=== PATIENT | female | born 1955 | race Caucasian/White ===

== ENCOUNTER 2018-08-15 01:36 | Outpatient (CLI) | payer BC, SELFPAY ==
[2018-08-15 09:05] LABS: Hemoglobin A1C 5.3 % (4.5-6.2)
[2018-08-15 10:25] LABS: ALT 34 U/L (12-78); AST 22 U/L (15-37); Albumin 3.7 g/dL (3.4-5.0); Alkaline Phosphatase 105 U/L (46-116); Anion Gap 9.9 mmol/L (3-11); BUN 15 mg/dL (7-18); Bilirubin, Total 0.5 mg/dL (0.2-1.0); CO2 26.1 mmol/L (21.0-32.0); Calcium 9.2 mg/dL (8.5-10.1); Chloride 107 mmol/L (98-107); Cholesterol 245 mg/dL (50-200); Glucose 92 mg/dL (70-100); HDL Cholesterol 80 mg/dL (40-60); LDL CHOLESTEROL 143 mg/dL (<100); Potassium 4.2 mmol/L (3.5-5.1); Sodium 143 mmol/L (136-145); Total Protein 6.6 g/dL (6.4-8.2); Triglyceride 77 mg/dL (30-150)
[2018-08-16 11:17] LABS: HIV-1/2 Ag & Ab Screen Negative (NEGAT)
[2018-08-16 12:02] LABS: Hepatitis C Ab w Rflx HCV PCR Negative (NEGAT)
== END 2018-08-15 01:56 ==
PROVIDERS: PCP Nurse Practitioner Family; Visit Provider Nurse Practitioner Family
DX: I10 Essential (primary) hypertension (principal); R73.01 Impaired fasting glucose; E78.5 Hyperlipidemia, unspecified; Z11.59 Encounter for screening for other viral diseases; Z11.4 Encounter for screening for human immunodeficiency virus [HIV]
CPT/HCPCS: 36415; 80053; 80061; 83721; 86803; 87389; 83036

== ENCOUNTER 2019-01-13 11:39 | Emergency (ER) | payer BC, SELFPAY ==
[2019-01-13] VITALS (7 sets, daily range): BP systolic 145–178; BP diastolic 64–66; PULSE 92–119; RESP 12–29; TEMP 36.7–36.8; O2SAT 98–99
[2019-01-13 12:06] LABS: Abs Immature Grans 0.03 k/cumm (0.0-0.09); Absolute Basophil Count 0.03 k/cumm (0.0-0.2); Absolute Eosinophil Count 0.07 k/cumm (0.0-0.7); Absolute Lymphocyte Count 1.82 k/cumm (1.2-3.4); Absolute Monocyte Count 0.65 k/cumm (0.11-0.7); Absolute Neutrophil Count 4.21 k/cumm (1.2-6.7); Basophils % 0.4; HCT 43.8 % (36.0-46.0); HGB 13.6 g/dL (12.0-15.5); Immature Grans % 0.4; Lymphocytes % 26.7; Mean Corp. HGB Concentration 31.1 g/dL (32.0-36.0); Mean Corpuscular Hemoglobin 28.8 pg (27.0-33.0); Mean Corpuscular Volume 92.6 fL (80-95); Mean Platelet Volume 10.9 fL (8.0-11.0); Monocytes % 9.5; Platelet Count 229 x1000/uL (130-400); RBC 4.73 m/cumm (4.00-5.20); RBC Distribution Width 16.6 % (11.7-14.6); White Blood Cell Count 6.81 k/cumm (4.4-10.8)
[2019-01-13 12:27] LABS: Lipase 133 U/L (73-393)
[2019-01-13 12:36] LABS: ALT 29 U/L (12-78); AST 19 U/L (15-37); Alkaline Phosphatase 113 U/L (46-116); Anion Gap 14.8 mmol/L (3-11); BUN 17 mg/dL (7-18); Bilirubin, Total 0.4 mg/dL (0.2-1.0); CO2 23.2 mmol/L (21.0-32.0); CREATININE 1.09 mg/dL (0.55-1.02); Calcium 9.4 mg/dL (8.5-10.1); Chloride 103 mmol/L (98-107); Estimated GFR 50.54 (mL/min/1.73m2); Glucose 116 mg/dL (70-100); Potassium 3.6 mmol/L (3.5-5.1); Sodium 141 mmol/L (136-145); Total Protein 7.7 g/dL (6.4-8.2)
[2019-01-13 12:47] LABS: ETHANOL BLOOD < 3.0 mg/dL (<3); Troponin I < 0.05 ng/mL (0.00-0.06)
[2019-01-13] MEDS: Normal Saline 1,000 ML 1000 ML IV ×2 (13:11→14:22)
[2019-01-13 13:31] LABS: Bilirubin Negative (Negative); Blood Negative (Negative); Clarity Clear (Clear); Glucose Negative (Negative); Ketones Negative (Negative); Leukocyte Esterase Negative (Negative); Nitrite Negative (Negative); Urobilinogen 0.2 EU/dL (Up TO 0.2); pH 5.5 (5-8)
--- NOTE | 2019-01-13 14:05 | ED.GENADUL_ITS ---
Discharge Plan Disposition Patient Disposition: HOME Condition: Improving Discharge Details Chief Complaint: GenMedical Clinical Impression: Nausea, Other malaise Primary Care Provider: Nisreen Murphy ED Provider: Gabe Matos Home Meds and New Rx's Prescriptions: Continued Centrum Silver Women 8 mg iron-400 mcg-300 mcg tablet 0.5 tab PO DAILY RF: 0 cholecalciferol (vitamin D3) 1,000 unit capsule 1,000 unit PO DAILY RF: 0 fluticasone propionate [Flonase Allergy Relief] 50 mcg/actuation spray,suspension 1 spray NS DAILY PRN (Reason: nasal congestion) Qty: 3 RF: 3 triamcinolone acetonide 15 GM cream 15 gm Topical DIRECTED PRNRF: 0 clotrimazole 1 % cream 1 applic TP BID RF: 0 Discharge Instructions Instructions: Vertigo (ED) Additional Instructions: Continue to take your medication as prescribed and return to the emergency department immediately for any new or significant worsening of symptoms. Please stay well-hydrated as some of your labs were suggestive of dehydration and keep your follow-up appointments as scheduled. Referrals: Nisreen Murphy, [facility] [Primary Care Provider] - (As needed for further reassessment) Discharge Data Discharge Date/Time-TO BE ENTERED AT DEPARTURE: 01/13/19 16:12 Medical Decision Making Patient presenting the emergency department for chief complaint of nausea and episode of malaise. Patient states that she was reading her iPad when she started to feel off she then stood up and walked over to check her blood pressure and noted it was high and began having some nausea. Patient does state that cardiac problems run in her family. Patient denies any chest pain, shortness of breath, or difficulty breathing. Patient does state some sinus congestion and pressure along with some left ear otalgia. Physical exam is unremarkable and shows negative hints exam, normal cranial nerve exam, patient amatory moving all extremities with no deficiencies noted extremities, normal cardiac exam except for tachycardia, normal respiratory exam. Plan to check EKG, labs, and give IV fluids. EKG reviewed with attending physician and shows sinus tachycardia, rate of 115, no acute signs of STEMI Review of labs shows a unremarkable CBC, CMP with elevated anion gap and decreased renal function compared to patient's baseline but nothing emergent, otherwise nondiagnostic, unremarkable UA, and negative troponin. Given elevated anion gap along with decreased renal function plan to give patient second liter of IV fluids. After second liter of IV fluids patient states that she is feeling better but given the patient has been here already for 3 hours I do feel is appropriate for repeat troponin to rule out any acute coronary symptoms but patient continues remain chest pain-free and no dyspnea. Review of second troponin is also negative. Patient now not tachycardic and states even further improvement of symptoms. Given patient's sinus tenderness along with otalgia and episode of feeling off along with some nausea question of possible vertigo. Mira-Hallpike is negative. Patient does state history of vertigo in the past due to chronic ear and sinus issues that she sees Dr. Seals for. Patient does state that she is seeing Dr. Seals next week which I feel is appropriate. Otherwise given non-worrisome physical exam and laboratory findings and patient having improvement I do feel the patient is able to be safely discharged. Close return precautions were discussed. After discussion of diagnosis and plan of care patient has no further needs, questions, or con cerns and states clear understanding to return to the emergency department for any worsening symptoms. HPI General Mode of arrival: ambulatory . Date/Time Provider Initiated Documentation: 01/13/19 11:48 . Limitations to Documentation: no limitations . Information obtained by: patient and RN notes reviewed . History of Present Illness described as mild, with intensity rated at 4. Quality is described as aching, and is localized to the face. Patient started experiencing this hour(s) (2) and it has been constant. No relieving factors improve symptom(s), No exacerbating factors reported . Patient notes no other symptoms.. Patient did receive the following treatments prior to arrival, none Related Data Home Medications Medication Instructions Recorded Confirmed triamcinolone acetonide 15 gm TOPICAL DIRECTED PRN 11/23/15 01/13/19 script clotrimazole 1 % topical cream 1 applic TP BID 04/30/18 01/13/19 cholecalciferol (vitamin D3) 1,000 1,000 unit PO DAILY 07/18/18 01/13/19 unit capsule fluticasone propionate 50 1 spray NS DAILY PRN #3 unit 07/18/18 01/13/19 mcg/actuation nasal spray,suspension multivit with 0.5 tab PO DAILY tab 07/18/18 01/13/19 [id number] 8 mg iron-400 mcg-300 mcg tablet Previous Rx's Medication Instructions Recorded fluticasone propionate 50 1 spray NS DAILY PRN #3 unit 07/18/18 mcg/actuation nasal spray,suspension Allergies Allergy/AdvReac Type Severity Reaction Status Date / Time Cherries Allergy Unknown Throat Uncoded 01/13/19 11:46 Problems Walnuts Allergy Unknown Throat Uncoded 01/13/19 11:46 Problems General Stated Complaint: GenMedical QIAN: 3 Review of Systems Constitutional Denies chills, Denies fever(s) and Denies headache(s) ENT Denies vertigo, Denies dizziness and Denies headache(s) Cardiovascular Denies chest pain, Denies syncope and Denies dyspnea Respiratory Denies cough and Denies dyspnea Gastrointestinal Reports as per HPI, Denies abdominal pain, Denies melena, Denies change in bowel habits, Denies constipation, Denies diarrhea, Reports nausea and Denies vomiting Genitourinary Denies hematuria and Denies dysuria Integumentary/Breasts Denies rash Neurologic Denies confusion, Denies vertigo, Denies dizziness, Denies syncope, Denies headache(s) and Denies lack of coordination Psychiatric Denies confusion FORMERLY [facility], [facility]–1983 Medical History Adult BMI > 30 (Chronic) Allergic rhinitis, unspecified (Chronic 09/18/11) Breast cancer (Inactive) Essential hypertension (Resolved 02/24/16) Hyperlipidemia, unspecified (Chronic 09/26/12) IFG (impaired fasting glucose) (Chronic) Low back pain without sciatica (Inactive 09/18/11) Positive NAYELI (antinuclear antibody) (Chronic 09/18/11) Tubular adenoma of colon (Inactive 08/09/17) Surgical History Colonoscopy - IV Sedation (Resolved 05/01/07) Colonoscopy w/ BX (Resolved 08/09/17) Dilation and curettage (Resolved 05/27/02) vein stripping (Resolved) Family History Mother No problems noted. 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 Pets and animals: No Current gender identity: female What type of physical activity do you participate in: none Seatbelt use: always Helmet use: Yes Drive intox or ride w/intox certified driver examiner: No Water heater temp set <120 deg: Yes Working smoke detector in home: Yes Fire extinguisher in home: Yes Carbon monox detector in home: Yes Firearms in home: No Do you feel safe at home: Yes Do you feel safe in your relationship?: Yes Exam Const General: cooperative Orientation: alert, awake and oriented x3 HENMT Head: normal to inspection Ears: hearing grossly normal bilaterally, TM normal on the right and TM abnormal erythematous on the left and with fluid behind the TM; not bulging and with no loss of landmarks Face and sinus: sinus tenderness frontal and maxillary Mouth: oral mucosae normal and moist mucous membranes Throat: posterior oropharynx normal, tonsils normal and uvula midline Eyes Visual Duenas: normal visual duenas by confrontation Alignment and Position: alignment normal Periorbital: periorbital findings normal Eyelids: eyelids normal Sclera: sclerae normal Cornea: corneas normal Pupils: PERRL EOM: EOM intact bilaterally Neck Neck: normal visual inspection, full ROM, no lymphadenopathy and no meningeal signs Resp Effort & Inspection: normal respiratory effort and able to speak in complete sentences Auscultation: clear to auscultation bilaterally Cardio Rate: regular rate Rhythm: regular rhythm Heart Sounds: S1 normal and S2 normal Back/Spine/Pelvis Back: no CVA tenderness Neuro General: alert, awake, oriented x3, gait normal, moves all extremities, CN's II- XI intact bilaterally and No Mria Hallpike Cognition: normal cognition Speech: speech normal Motor: muscle tone normal throughout, strength 5/5 throughout and no pronator drift Sensory Exam: no sensory deficits noted Coordination: Romberg test normal and Does not sway with eyes open Course Vital Signs Temperature 36.7 C 01/13/19 11:44 Pulse 119 H 01/13/19 11:44 Respiratory Rate 18 08/20/19 11:44 Blood Pressure 178/64 H 01/13/19 11:44 Pulse Oximetry 99 01/13/19 11:44 Temperature 36.7 C 01/13/19 11:44 Temperature Source Skin 01/13/19 11:44 Pulse 119 H 01/13/19 11:44 Respiratory Rate 18 01/13/19 11:44 Respiratory Effort Non-Labored 01/13/19 12:00 Respiratory Depth Normal 01/13/19 12:00 Respiratory Pattern Normal 01/13/19 12:00 Blood Pressure 178/64 H 01/13/19 11:44 Pulse Oximetry 99 01/13/19 11:44 Oxygen Delivery Method Room Air 01/13/19 11:44 Oxygen Flow Rate 0 01/13/19 11:44 Pain Level 5 01/13/19 11:44 Comment 01/13/19 11:44 Lab/Test Results Lab/Test Results: Laboratory Tests Range/Units 01/13/19 01/13/19 01/13/19 12:00 12:00 12:00 WBC (4.4-10.8) k/cumm 6.81 RBC (4.00-5.20) m/cumm 4.73 Hgb (12.0-15.5) g/dL 13.6 Hct (36.0-46.0) % 43.8 MCV (80-95) fL 92.6 MCH (27.0-33.0) pg 28.8 MCHC (32.0-36.0) g/dL 31.1 L RDW (11.7-14.6) % 16.6 H Plt Count (130-400) x1000/uL 229 MPV (8.0-11.0) fL 10.9 Immature Gran % 0.4 Neutrophils % 62.0 Lymphocytes % 26.7 Monocytes % 9.5 Eosinophils % 1.0 Basophils % 0.4 Absolute Neutrophils (1.2-6.7) k/cumm 4.21 Absolute Lymphocytes (1.2-3.4) k/cumm 1.82 Absolute Monocytes (0.11-0.7) k/cumm 0.65 Absolute Eosinophils (0.0-0.7) k/cumm 0.07 Absolute Basophils (0.0-0.2) k/cumm 0.03 Sodium (136-145) mmol/L 141 Potassium (3.5-5.1) mmol/L 3.6 Chloride (98-107) mmol/L 103 Carbon Dioxide (21.0-32.0) mmol/L 23.2 Anion Gap (3-11) mmol/L 14.8 H BUN (7-18) mg/dL 17 Creatinine (0.55-1.02) mg/dL 1.09 H Estimated GFR/1.73 m2 (mL/min/1.73m2) 50.54 Glucose (70-100) mg/dL 116 H Calcium (8.5-10.1) mg/dL 9.4 Magnesium (1.8-2.4) mg/dL 2.0 Total Bilirubin (0.2-1.0) mg/dL 0.4 AST (15-37) U/L 19 ALT (12-78) U/L 29 Alkaline Phosphatase (46-116) U/L 113 Troponin I (0.00-0.06) ng/mL < 0.05 Total Protein (6.4-8.2) g/dL 7.7 Albumin (3.4-5.0) g/dL 4.0 Lipase (73-393) U/L 133 Urine Color (Yellow) Urine Clarity (Clear) Urine pH (5-8) Ur Specific Midnight (1.005-1.025) Urine Protein (Negative) mg/dL Urine Ketones (Negative) mg/dL Urine Blood (Negative) Urine Nitrite (Negative) Urine Bilirubin (Negative) Urine Urobilinogen (Up TO 0.2) EU/dL Ur Leukocyte Esterase (Negative) Urine Glucose (Negative) mg/dL Ethyl Alcohol (<3) mg/dL < 3.0 Range/Units 01/13/19 13:22 WBC (4.4-10.8) k/cumm RBC (4.00-5.20) m/cumm Hgb (12.0-15.5) g/dL Hct (36.0-46.0) % MCV (80-95) fL MCH (27.0-33.0) pg MCHC (32.0-36.0) g/dL RDW (11.7-14.6) % Plt Count (130-400) x1000/uL MPV (8.0-11.0) fL Immature Gran % Neutrophils % Lymphocytes % Monocytes % Eosinophils % Basophils % Absolute Neutrophils (1.2-6.7) k/cumm Absolute Lymphocytes (1.2-3.4) k/cumm Absolute Monocytes (0.11-0.7) k/cumm Absolute Eosinophils (0.0-0.7) k/cumm Absolute Basophils (0.0-0.2) k/cumm Sodium (136-145) mmol/L Potassium (3.5-5.1) mmol/L Chloride (98-107) mmol/L Carbon Dioxide (21.0-32.0) mmol/L Anion Gap (3-11) mmol/L BUN (7-18) mg/dL Creatinine (0.55-1.02) mg/dL Estimated GFR/1.73 m2 (mL/min/1.73m2) Glucose (70-100) mg/dL Calcium (8.5-10.1) mg/dL Magnesium (1.8-2.4) mg/dL Total Bilirubin (0.2-1.0) mg/dL AST (15-37) U/L ALT (12-78) U/L Alkaline Phosphatase (46-116) U/L Troponin I (0.00-0.06) ng/mL Total Protein (6.4-8.2) g/dL Albumin (3.4-5.0) g/dL Lipase (73-393) U/L Urine Color (Yellow) Yellow Urine Clarity (Clear) Clear Urine pH (5-8) 5.5 Ur Specific Midnight (1.005-1.025) 1.010 Urine Protein (Negative) mg/dL Negative Urine Ketones (Negative) mg/dL Negative Urine Blood (Negative) Negative Urine Nitrite (Negative) Negative Urine Bilirubin (Negative) Negative Urine Urobilinogen (Up TO 0.2) EU/dL 0.2 Ur Leukocyte Esterase (Negative) Negative Urine Glucose (Negative) mg/dL Negative Ethyl Alcohol (<3) mg/dL
[2019-01-13 15:53] LABS: Troponin I < 0.05 ng/mL (0.00-0.06)
== END 2019-01-13 16:12 | disposition home or self-care (01) ==
PROVIDERS: Emergency Provider Nurse Practitioner Family; PCP Nurse Practitioner Family
DX: R53.81 Other malaise (principal); R11.0 Nausea; R00.0 Tachycardia, unspecified; I10 Essential (primary) hypertension
CPT/HCPCS: 36415; 80053; 83690; 93005; 96360; 96361; 99284; 80320; 81003; 83735; 84484; 85025; 93010

== ENCOUNTER 2019-11-20 07:32 | Outpatient (CLI) | payer MEDICARE, SELFPAY ==
[2019-11-21 01:42] LABS: COVID-19 RT-PCR UVMMC Result Negative (Negative)
== END 2019-11-20 07:52 ==
PROVIDERS: PCP Nurse Practitioner Family; Visit Provider Family Medicine
DX: Z03.818 Encounter for observation for suspected exposure to other biological agents ruled out (principal)
CPT/HCPCS: U0003

== ENCOUNTER 2020-05-06 10:07 | Outpatient (CLI) | payer MEDICARE, SELFPAY ==
[2020-05-08 18:33] LABS: COVID-19 RT-PCR Result Positive (Negative)
== END 2020-05-06 10:27 ==
PROVIDERS: PCP Family Medicine; Visit Provider Family Medicine
DX: Z20.828 Contact with and (suspected) exposure to other viral communicable diseases (principal)
CPT/HCPCS: U0003

== ENCOUNTER 2020-05-09 09:11 | Outpatient (CLI) | payer MEDICARE, SELFPAY ==
[2020-05-09] VITALS (11 sets, daily range): BP systolic 127–156; BP diastolic 71–87; PULSE 56–92; RESP 16–19; TEMP 36.2–37.4; O2SAT 95–97
[2020-05-09] MEDS: Normal Saline 500 ML 30 ML IV (10:34)
[2020-05-09] MEDS: Normal Saline Flush 10 ML SYR IVP (10:34)
== END 2020-05-09 09:31 ==
PROVIDERS: PCP Family Medicine; Visit Provider Family Medicine
DX: U07.1 COVID-19 (principal)
CPT/HCPCS: 96365

== ENCOUNTER 2020-07-19 02:29 | Outpatient (CLI) | payer MEDICARE, SELFPAY ==
[2020-07-19 08:31] LABS: ALT 30 U/L (14-59); AST 18 U/L (15-37); Albumin 3.7 g/dL (3.4-5.0); Alkaline Phosphatase 109 U/L (46-116); BUN 19 mg/dL (7-18); Bilirubin, Total 0.5 mg/dL (0.2-1.0); CREATININE 0.9 mg/dL (0.55-1.02); Calcium 9.7 mg/dL (8.5-10.1); Calculated LDL 149 mg/dL (<100); Chloride 105 mmol/L (98-107); Cholesterol 253 mg/dL (<200); Glucose 94 mg/dL (74-106); HDL Cholesterol 86 mg/dL (40-60); Potassium 4.7 mmol/L (3.5-5.1); Sodium 144 mmol/L (136-145); Total Protein 6.9 g/dL (6.4-8.2); Triglyceride 92 mg/dL (<150)
== END 2020-07-19 02:30 | disposition home or self-care (01) ==
LOC: LBO 02:29
PROVIDERS: PCP Family Medicine; Visit Provider Family Medicine
DX: E78.5 Hyperlipidemia, unspecified (principal)
CPT/HCPCS: 36415; 80053; 80061

== ENCOUNTER 2021-07-14 20:35 | Outpatient (CLI) | payer MEDICARE, SELFPAY ==
--- NOTE | 2021-07-14 08:59 | DI.RAD_ITS ---
Exam(s) XR HIP RT COMPLETE AP PELVIS EXAM: XR HIP RT COMPLETE AP PELVIS CLINICAL HISTORY: R/O stress frx, assess for arthritis, RT HIP PAIN, M25.551. TECHNIQUE: 2D digital imaging was performed of the right hip. Two images were obtained. AP pelvis a nd lateral right hip views were obtained. COMPARISON: No exams were available for comparison FINDINGS: BONES: No acute fracture is present. No bony destructive lesion is seen. JOINTS: No dislocation present. There is mild joint space narrowing of the hips. Degenerative change s are seen in the lower lumbar spine. SOFT TISSUE: Coarse calcifications are seen in the pelvis, likely a calcified uterine fibroid. IMPRESSION: Mild narrowing of the hip joints bilaterally. DATA REPOSITORY: RADIATION DOSE DELIVERED:
== END 2021-07-14 20:55 ==
PROVIDERS: PCP Family Medicine; Visit Provider Family Medicine
DX: M25.551 Pain in right hip (principal); M25.851 Other specified joint disorders, right hip
CPT/HCPCS: 73502

== ENCOUNTER 2021-08-16 00:40 | Outpatient (CLI) | payer MEDICARE, SELFPAY ==
--- NOTE | 2021-08-16 06:30 | DI.MRI_ITS ---
Exam(s) MR LOWER JOINT RT WO EXAM: MR LOWER JOINT RT WO CLINICAL HISTORY: Progressive R hip pain,suspect ligament tear,m25.551 TECHNIQUE: Multiplanar multisequence MRI of the knee was performed. COMPARISON: CR XR HIP RT COMPLETE AP PELVIS from 07/14/2021 FINDINGS: MARROW: There is no evidence of stress fracture or avascular necrosis. No osseous lesions. No signi ficant joint effusion. SOFT TISSUES: No evidence of muscle tear. No evidence of gluteus medius tendinitis. No evidence of trochanteric bursitis nor iliopsoas bursitis. No abnormal masses nor adenopathy evident. ARTICULATION: Mild degenerative changes. No osteophytes. No abnormal thickening of the ligamentum t eres nor abnormal signal at the level of the fovea centralis. LABRUM there is anterior labral tearing. No obvious paralabral cyst but there is overlying degenerat gildardo cystic change within the anterior acetabulum at this level. This measures 1.2 cm by 0.8 cm. Pos terior labrum appears intact. IMPRESSION: 1. There is tearing of the anterior labrum. There are degenerative subarticular cysts in the overlyi ng anterior acetabulum. No side degenerative subarticular cysts in the femoral head. 2. Mild joint space narrowing. No osteophytes. 3. No joint effusion. DATA REPOSITORY:
== END 2021-08-16 01:00 ==
PROVIDERS: PCP Family Medicine; Visit Provider Family Medicine
DX: M25.551 Pain in right hip (principal); S73.191A Other sprain of right hip, initial encounter
CPT/HCPCS: 73721

== ENCOUNTER → 2021-09-20 10:09 | Outpatient (BNVA) | payer MEDICARE, SELFPAY | PROVIDERS: PCP Family Medicine; Referring Provider Family Medicine; Visit Provider Student in an Organized Health Care Education/Training Program | DX: M16.11 Unilateral primary osteoarthritis, right hip (principal); S73.191A Other sprain of right hip, initial encounter; X58.XXXA Exposure to other specified factors, initial encounter | CPT/HCPCS: 99204; 99214 ==

== ENCOUNTER → 2021-10-12 02:01 | Outpatient (CLI) | payer MEDICARE, SELFPAY ==
--- NOTE | 2021-10-12 13:20 | DI.RAD_ITS ---
Exam(s) RF JOINT INJECTION FLUORO GUID EXAM: RF JOINT INJECTION FLUORO GUID CLINICAL HISTORY: R HIP PAIN,FLUORO GUIDED INJECTION,ACETABULAR LABRUM TEAR,M25.551 TECHNIQUE: 2D and realtime digital imaging was performed. CONTRAST MATERIAL: Water soluble contrast was administered. COMPARISON: No exams were available for comparison FINDINGS: Fluoroscopy was provided for Dr. Martini during the performance of a right hip injection. Please refe r to the procedure report for complete details. RADIATION DOSE DELIVERED: imani Ceballos=0.953 mGy
[2021-10-12] MEDS: methylPREDNISolone ACETATE 80 MG/ML VIAL IM (13:55)
[2021-10-12] MEDS: Bupivacaine 0.5% Pres-Free 30 ML VIAL 5 ML IJ (13:57)
[2021-10-12] MEDS: Omnipaque 300 MG/ML 10 ML BTL IJ (14:00)
--- NOTE | 2021-10-12 19:09 | W.PROCNOTE ---
Date of service: 10/12/21 Time of Service: 13:30 Procedure Note Date of procedure: 10/12/21 Procedure: Right Hip Injection with Fluoroscopic Guidance Surgeon/Proceduralist/Physician: Leonard Lovett Procedure Diagnosis: Right Hip Pain Procedure Indications: Sulema has had persistent pain of the RIGHT hip and groin. Noninvasive measures have been tried. To serve as both diagnostic and therapeutic, an injection under fluoroscopy was recommended. I had discussed the risks of the procedure and the patient elected to proceed. Procedure Description: Sulema was greeted in the flouroscopy room. The correct side was identified and the consent was reviewed with the patient and signed. The patient was then placed in the supine position on the fluoroscopy table. The RIGHT hip was then prepped with Chloraprep. The anterolateral injection starting point was identiifed by bony landmarks and fluoroscopy. The skin and soft tissue in the tract of the injection was anesthetized with 1% Lidocaine. A spinal needle was then inserted deep into the hip joint at the level of the lateral femoral neck under fluoroscopic guidance. A small amount of Omnipaque solution was injected to confirm intraarticular placement. Once confirmed, the hip was injected with 6cc of 0.5% Bupivicaine and 80mg of Depo-Medrol. A bandaid was placed on the injection site. The patient tolerated the procedure well.
== END ==
PROVIDERS: PCP Family Medicine; Visit Provider Student in an Organized Health Care Education/Training Program
DX: S73.191A Other sprain of right hip, initial encounter; X58.XXXA Exposure to other specified factors, initial encounter
CPT/HCPCS: 20610; 77002; J1040

== ENCOUNTER → 2021-11-21 09:46 | Outpatient (BNVA) | payer MEDICARE, SELFPAY | PROVIDERS: PCP Family Medicine; Referring Provider Family Medicine; Visit Provider Student in an Organized Health Care Education/Training Program | DX: M16.11 Unilateral primary osteoarthritis, right hip (principal) | CPT/HCPCS: 99213 ==

== ENCOUNTER → 2021-12-28 08:47 | Outpatient (BNVA) | payer MEDICARE, SELFPAY | PROVIDERS: PCP Family Medicine; Referring Provider Family Medicine; Visit Provider Student in an Organized Health Care Education/Training Program | DX: M25.851 Other specified joint disorders, right hip (principal); S73.191D Other sprain of right hip, subsequent encounter; X58.XXXD Exposure to other specified factors, subsequent encounter; M16.11 Unilateral primary osteoarthritis, right hip | CPT/HCPCS: 99213 ==

== ENCOUNTER 2022-02-08 14:56 | Outpatient (CLI) | payer MEDICARE, SELFPAY ==
--- NOTE | 2022-02-08 13:45 | DI.RAD_ITS ---
Exam(s) XR HIP RT COMPLETE AP PELVIS EXAM: XR HIP RT COMPLETE AP PELVIS CLINICAL HISTORY: preop. TECHNIQUE: 2D digital imaging was performed of the right hip. Two images were obtained. AP pelvis a nd lateral right hip views were obtained. COMPARISON: CR XR HIP RT COMPLETE AP PELVIS from 07/14/2021 FINDINGS: BONES: No acute fracture is present. No bony destructive lesion is seen. JOINTS: No dislocation present. Mild degenerative changes are seen in the hips bilaterally with joint space narrowing and mild acetabular spurring. SOFT TISSUE: Coarse calcifications are seen in the pelvis most consistent with a degenerating uterine fibroid. IMPRESSION: Mild degenerative changes of the right hip. DATA REPOSITORY: RADIATION DOSE DELIVERED:
== END 2022-02-08 14:57 | disposition home or self-care (01) ==
LOC: DIORS 14:56
PROVIDERS: PCP Family Medicine; Referring Provider Family Medicine; Visit Provider Physician Assistant Surgical
DX: M16.11 Unilateral primary osteoarthritis, right hip (principal); Z01.818 Encounter for other preprocedural examination
CPT/HCPCS: 73502

== ENCOUNTER 2022-02-19 02:33 | Outpatient (CLI) | payer MEDICARE, SELFPAY ==
[2022-02-19 09:21] LABS: HCT 43.9 % (36.0-46.0); HGB 13.2 g/dL (11.2-15.7); MCHC 30.1 % (32.0-36.0); MCV 97 fL (80-95); MPV 10.8 fL (8.0-11.0); Platelet Count 208 10^3/uL (130-400); RBC 4.55 10^6/uL (3.93-5.22); RDW 15.4 % (11.7-14.6); RDW-SD 55.6 fL; WBC 5.33 10^3/uL (4.4-10.8)
[2022-02-19 10:01] LABS: Anion Gap 13.1 mmol/L (3-11); BUN 14 mg/dL (7-18); CO2 25.9 mmol/L (21.0-32.0); Calcium 9.5 mg/dL (8.5-10.1); Chloride 103 mmol/L (98-107); Estimated GFR 61.75 (mL/min/1.73m2); Glucose 96 mg/dL (74-106); Potassium 3.6 mmol/L (3.5-5.1); Sodium 142 mmol/L (136-145)
== END 2022-02-19 02:34 | disposition home or self-care (01) ==
LOC: LBO 02:33
PROVIDERS: PCP Family Medicine; Visit Provider Student in an Organized Health Care Education/Training Program
DX: M25.551 Pain in right hip (principal); M16.11 Unilateral primary osteoarthritis, right hip; Z01.818 Encounter for other preprocedural examination; Z01.812 Encounter for preprocedural laboratory examination
CPT/HCPCS: 36415; 80048; 85027

== ENCOUNTER 2022-02-20 08:16 | Day surgery (SDC) | payer MEDICARE, SELFPAY ==
[2022-02-20] VITALS (10 sets, daily range): BP systolic 123–159; BP diastolic 42–79; PULSE 46–72; RESP 16–24; TEMP 36–36.5; O2SAT 95–100; BMI 41.3
--- NOTE | 2022-02-20 07:31 | W.PM.DS.N ---
DS: Diagnosis Discharge Diagnosis (1) Degenerative joint disease of right hip: Status: Acute Discharge Plan Disposition Patient Disposition: HOME Condition: Good Discharge Details Reason For Visit: Right hip DJD Attending Provider: Leonard Lovett Primary Care Provider: Abdulkadir Shanks Home Meds and New Rx's Prescriptions: New aspirin 81 mg tablet,delayed release (DR/EC) 81 mg PO BID 30 Days Qty: 60 0RF pantoprazole 40 mg tablet,delayed release (DR/EC) 40 mg PO DAILY 14 Days Qty: 14 0RF docusate sodium [Colace] 100 mg capsule 100 mg PO BID Qty: 30 0RF oxycodone 5 mg tablet 2.5 - 5 mg PO Q4H Qty: 4 0RF meloxicam 15 mg tablet 15 mg PO DAILY Qty: 30 0RF dexamethasone 4 mg tablet 4 mg PO DAILY Qty: 2 0RF Rx Instructions: Starting Post-Operative Day #1 (Day after surgery) Continued iron bisglycinate chelate 28 mg iron capsule 28 mg PO DAILY cholecalciferol (vitamin D3) 25 mcg (1,000 unit) capsule 25 mcg PO DAILY fexofenadine 180 mg tablet 180 mg PO DAILY fluticasone propionate [Flonase Allergy Relief] 50 mcg/actuation spray,suspension 1 spray intranasal DAILY PRN Rx Instructions: administer into each nostril acetaminophen [Acetaminophen Extra Strength] 500 mg Tablet 500 mg PO Q6H PRN Discharge Instructions Additional Instructions: Total Hip Discharge Instructions Activity: The most important activity is to walk. You should try to take short walks a few times a day. You have no restrictions on movement or positioning, but do not try to force what you do. You will find some stiffness and weakness with hip flexion (lifting your knee). Do not try to strengthen this too early, continue to practice walking and stairs and this will come. - Outpatient physical therapy can be helpful to help return you to a normal gait and improve your flexibility and strength. This can start around 2 weeks. For some patients, it?s not necessary. Usually this is determined at the time of discharge or at the first post-operative visit. - You should wear the KATHRYN hose on both legs for 2 weeks. Dressing: Keep the surgical dressing in place for at least one week. After the first week it may be removed and replace with light gauze and tape or nothing. It may get wet after 3 days but avoid soaking the dressing. If it gets wet, just lightly pat dry. It is important to always keep some gauze between skin folds, especially when you are sitting. Spend some time with the wound exposed when you are lying flat as the incision does wrinkle onto itself. Medications: - You should take Tylenol and an anti-inflammatory, Meloxicam as your primary pain control medications. If you run out of these medications please contact the office for refill. - You had declined a narcotic for breakthrough pain - a few pills of Oxycodone were called in just in case. You may halve that tablet. - You have also been prescribed a stomach acid reduction agent Pantoprozole to help reduce stomach acid and reflux. - You also have been prescribed a steroid to take on post-op day #1 and #2 (02/21 and 02/22). This will help with post-op pain and nausea. - You will be taking Aspirin 81mg twice a day for DVT prevention unless instructed otherwise. - If you have constipation you should take Colace (which has been prescribed) or Miralax (which is available [id number]). It takes most people 3-4 days to have a bowel movement. Follow-up: 2 weeks If you have any acute concerns or questions, please do not hesitate to contact the office at [phone]. You may contact Dr. Lovett with any questions after hours through the hospital at [phone] or on his cell phone at [phone]. Stand Alone Forms: Violet Laughlin ([facility]) Referrals: Leonard Lovett MD [ [facility] STAFF PHYSICIAN] - Equipment/Supplies: Walker Activity:: Activity as Tolerated Remove Dressings/Wound Care:: Do Not Remove Shower/Bathe:: Cover Diet:: As Tolerated Discharge Data Discharge Date/Time-TO BE ENTERED AT DEPARTURE: 02/20/22 16:09 DS: Summary Time Spent with Patient providing and/or coordinating discharge services: Less than 30 minutes Status at Discharge Functional status at discharge: uses cane/walker Overall status at discharge: patient is progressing back to baseline Mental Status: mental status grossly normal Speech and Movement: speech and movement normal Mood: congruent mood Affect: normal affect Exam Psych Mental Status: mental status grossly normal Speech and Movement: speech and movement normal Mood: congruent mood Affect: normal affect DS: Data Vitals/I&O Vitals and I&O: Intake & Output 02/19/22 02/19/22 02/20/22 11:59 23:59 11:59 Weight 241 lb 0.008 oz PFSH All Active Problems Adult BMI > 30 (Chronic) Allergic rhinitis, unspecified (Chronic 09/18/11) Essential hypertension (Chronic 02/24/16) Hyperlipidemia, unspecified (Chronic 09/26/12) 07/2018 labs: 10-year ASCVD risk = ~5% --> no statin indicated at this time Positive NAYELI (antinuclear antibody) (Chronic 09/18/11) IFG (impaired fasting glucose) (Chronic) Pre-hypertension (Chronic) Elevated blood-pressure reading without diagnosis of hypertension (Acute 09/18/11) Anemia (Acute 09/26/12) Benign positional vertigo (Acute) Impingement syndrome of left shoulder (Acute) Chronic allergic rhinitis (Acute) Right hip pain (Acute) Acetabular labrum tear (Acute) Degenerative joint disease of right hip (Acute) Medical History History of breast cancer Surgical History Colonoscopy - IV Sedation (05/01/07) Colonoscopy w/ BX (08/09/17) [facility] – [place] Dilation and curettage (05/27/02) Dr Madden Hx of partial mastectomy (L) side vein stripping L leg Family History Mother , breast CA at age 53. No problems noted. Father , melanoma at age 77. 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
[2022-02-20] MEDS: Acetaminophen 500 MG TAB 1000 MG PO (08:46)
[2022-02-20] MEDS: Lactated Ringers 1,000 ML 80 ML IV (09:14)
--- NOTE | 2022-02-20 09:27 | ANES.PREOP_ITS ---
General Info Date of Service Date Performed: 02/20/22 Height: 5 ft 4 in Weight: 109.316 kg Body Mass Index (BMI): 41.3 Surgical Procedure: Operation Date: 02/20/22 11:05 Proposed Procedure Side Surgeon p Hip Total Hip Anterior Right Leonard Lovett MD Meds Allergies and Home Medications Allergies Allergy/AdvReac Type Severity Reaction Status Date / Time Cherries Allergy Unknown Throat Uncoded 02/19/22 12:52 Problems Walnuts Allergy Unknown Throat Uncoded 02/19/22 12:52 Problems Home Medication Medication Instructions Recorded acetaminophen 500 mg tablet 500 mg PO Q6H PRN 05/09/20 (Acetaminophen Extra Strength) cholecalciferol (vitamin D3) 25 25 mcg PO DAILY 01/17/21 mcg (1,000 unit) capsule fexofenadine 180 mg tablet 180 mg PO DAILY 01/17/21 fluticasone propionate 50 1 spray intranasal DAILY PRN 07/14/21 mcg/actuation nasal spray,suspension (Flonase Allergy Relief) iron bisglycinate chelate 28 mg PO DAILY 02/08/22 aspirin 81 mg tablet,delayed 81 mg PO BID 30 days #60 tabs 02/20/22 release dexamethasone 4 mg tablet 4 mg PO DAILY #2 tabs 02/20/22 docusate sodium 100 mg capsule 100 mg PO BID #30 caps 02/20/22 (Colace) meloxicam 15 mg tablet 15 mg PO DAILY #30 tabs 02/20/22 oxycodone 5 mg tablet 2.5 - 5 mg PO Q4H #4 tabs 02/20/22 pantoprazole 40 mg tablet,delayed 40 mg PO DAILY 14 days #14 tabs 02/20/22 release Current Visit Medications: Current Medications Generic Name Dose Route Start Last Admin Trade Name Freq PRN Reason Stop Dose Admin Acetaminophen 1,000 mg 02/20/22 06:00 02/20/22 08:46 Acetaminophen 500 Mg Tab PO 02/20/22 16:00 500 mg PREOP RIKKI Administration Acetaminophen 1,000 mg 02/20/22 14:00 Acetaminophen 500 Mg Tab PO TID RIKKI Aspirin 81 mg 02/20/22 20:00 Aspirin E.C. 81 Mg Tabec PO BID RIKKI Docusate Sodium 100 mg 02/20/22 07:28 Docusate Sodium 100 Mg Cap PO BID PRN PRN Constipation Hydromorphone HCl 0.5 mg 02/20/22 07:28 Hydromorphone 2 Mg/Ml Syr IVP Q2H PRN PRN Ringer's Solution 1,000 mls @ 80 mls/hr 02/20/22 06:00 02/20/22 09:14 IV 03/21/22 23:59 80 mls/hr INFUSION RIKKI Administration Cefazolin Sodium/Dextrose 2 gm in 50 mls @ 100 mls/hr 02/20/22 06:00 Ancef Duplex IVPB 02/20/22 16:00 PREOP RIKKI Tranexamic Acid 1,000 mg/ 60 mls @ 360 mls/hr 02/20/22 06:00 Sodium Chloride IVPB 02/20/22 16:00 PREOP RIKKI Cefazolin Sodium/Dextrose 1 gm in 50 mls @ 100 mls/hr 02/20/22 08:00 Ancef Duplex IVPB 02/21/22 00:29 Q8H RIKKI IV Miscellaneous Supplies 1 each 02/20/22 06:00 Iv Access IV 03/21/22 23:59 DIRECTED RIKKI Oxycodone HCl 0 mg 02/20/22 07:28 Oxycodone 5 Mg Tab PO Q3H PRN PRN Pain Pantoprazole Sodium 40 mg 02/21/22 07:30 Pantoprazole 40 Mg Tabcr PO DAILY@0730 RIKKI Polyethylene Glycol 17 gm 02/20/22 07:28 Polyethylene Glycol 3350 17 Gm Packet PO BID PRN PRN Constipation Sodium Chloride 0 ml 02/20/22 06:00 Normal Saline Flush 10 Ml Syr IV 03/21/22 23:59 PRN PRN Sodium Chloride 0 ml 02/20/22 06:00 Normal Saline 10 Ml Vial IJ 03/21/22 23:59 DIRECTED PRN Sterile Water 0 ml 02/20/22 06:00 Water,Injection,Sterile 10 Ml Vial IJ 03/21/22 23:59 DIRECTED PRN PFSH Active Problems Active Problems: Problem Status Onset Code Adult BMI > 30 Allergic rhinitis, unspecified 09/18/11 J30.9 Essential hypertension 02/24/16 I10 Hyperlipidemia, unspecified 09/26/12 E78.5 Positive NAYELI (antinuclear antibody) 09/18/11 R76.8 IFG (impaired fasting glucose) R73.01 Pre-hypertension R03.0 Elevated blood-pressure reading without diagnosis of hypertension 09/18/11 R03.0 Anemia 09/26/12 D64.9 Benign positional vertigo H81.10 Impingement syndrome of left shoulder M75.42 Chronic allergic rhinitis J30.9 Right hip pain M25.551 Acetabular labrum tear S73.199A Degenerative joint disease of right hip M16.11 Medical History Medical History History of breast cancer Surgical History Surgical History Colonoscopy - IV Sedation (05/01/07) Colonoscopy w/ BX (08/09/17) [facility] [place] Dilation and curettage (05/27/02) Dr Madden Hx of partial mastectomy (L) side vein stripping L leg Tobacco Smoking/Tobacco Use Status: Never Alcohol Alcohol Intake: current Alcohol intake frequency: 0-2 drinks per day Alcohol type: wine and hard liquor Substance Use Substance use: Never Substance use type: does not use Vital Signs and Lab Results Vital Signs Most Recent Vital Signs in EMR: Most Recent Vital Signs Temp Pulse Resp BP Pulse Ox 36.4 C L 72 18 159/79 H 100 02/20/22 08:29 02/20/22 08:29 02/20/22 08:29 02/20/22 08:29 02/20/22 08:29 Lab Results Blood Type / Crossmatch: No Data to Display Complete Blood Count: White Blood Count 5.33 10^3/uL (4.4-10.8) 02/19/22 09:03 Red Blood Count 4.55 10^6/uL (3.93-5.22) 02/19/22 09:03 Hemoglobin 13.2 g/dL (11.2-15.7) 02/19/22 09:03 Hematocrit 43.9 % (36.0-46.0) 02/19/22 09:03 Platelet Count 208 10^3/uL (130-400) 02/19/22 09:03 Complete Metabolic Panel: Sodium Level 142 mmol/L (136-145) 02/19/22 09:03 Potassium Level 3.6 mmol/L (3.5-5.1) 02/19/22 09:03 Chloride Level 103 mmol/L (98-107) 02/19/22 09:03 Carbon Dioxide Level 25.9 mmol/L (21.0-32.0) 02/19/22 09:03 Blood Urea Nitrogen 14 mg/dL (7-18) 02/19/22 09:03 Creatinine 1.0 mg/dL (0.55-1.02) 02/19/22 09:03 Calcium Level 9.5 mg/dL (8.5-10.1) 02/19/22 09:03 Glucose Level 96 mg/dL (74-106) 02/19/22 09:03 Liver Function Panel: No Data to Display Coagulation Panel: No Data to Display Cardiac Panel: No Data to Display Arterial Blood Gas: No Data to Display Venous Blood Gas: No Data to Display Pancreas Panel: No Data to Display Thyroid Panel: No Data to Display Infectious Disease: No Data to Display Blood Cultures: No Data to Display Toxicology Panel: No Data to Display Anesthesia Assessment and Plan Anesthesia History Personal History: Delayed Emergence Family History: No Family History of Anesthesia Complications Exercise Tolerance Exercise Tolerance: Metabolic Equivalents>4 Pertinent Negatives Pertinent Negatives: No Symptoms of GERD, No Major Cardiovascular Symptoms or Complaints and No Major Pulmonary Symptoms or Complaints Cardiac & Pulmonary Exam Cardiac Exam: Normal S1/S2 Heart Sounds Pulmonary Exam: Clear Bilateral Breath Sounds Implantable Cardiac Device Does patient have a Pacemaker or an ICD?: No Airway Exam Known Difficult Airway: No Mallampati Class: 2 Mouth Opening: Normal (> 3cm) Thyromental Distance: Greater than 3 cm Neck Range of Motion: Full ROM Neck Circumference: Thick Teeth Condition: Removable Dentures/Plates Upper and Removable Dentures/Plates Lower ASA Classification ASA Score: ASA 2 Emergency Case?: No NPO Status NPO Status: NPO Clears >2 hours, Solids >8 hours Anesthesia Plan Resuscitation Status: Full Code Anesthesia Technique: General Anesthesia Airway Planned: Natural Airway Monitors Used: Standard Monitors
--- NOTE | 2022-02-20 09:30 | DI.RAD_ITS ---
Exam(s) XR HIP RT IN OR EXAM: XR HIP RT IN OR CLINICAL HISTORY: total hip TECHNIQUE: 2D and realtime digital imaging was performed. CONTRAST MATERIAL: Refer to procedure report. COMPARISON: CR XR HIP RT COMPLETE AP PELVIS from 02/08/2022 FINDINGS: Fluoroscopy was provided for Dr. Lovett during the performance of a right total hip arthroplasty. Please refer to the procedure report for complete details. Ka,r=9.7 mGy IMPRESSION: RADIATION DOSE DELIVERED:
[2022-02-20] MEDS: ceFAZolin 2 GM/50 ML BAG IVPB (10:18)
[2022-02-20] MEDS: Normal Saline 10 ML VIAL IJ (13:04)
[2022-02-20] MEDS: HYDROmorphone 2 MG/ML SYR IVP ×2 (13:04→13:23)
[2022-02-20] MEDS: oxyCODONE 5 MG TAB PO (14:11)
--- NOTE | 2022-02-20 14:47 | W.ANESPOSTOP ---
Postoperative Evaluation Date, Time and Location Date Performed: 02/20/22 Time Performed: 14:47 Patient Location: Day Surgery Unit Vital Signs Most Recent Imported Vital Signs: Most Recent Vital Signs Temp Pulse Resp BP Pulse Ox 36.5 C 60 17 142/55 H 96 02/20/22 14:31 02/20/22 14:31 02/20/22 14:31 02/20/22 14:31 02/20/22 14:31 Pain Score Most Recent Pain Score: Most Recent Pain Score Pain Level 4 02/20/22 14:31 Assessment Mental Status: Awake (Alert & Oriented to Patient Baseline) Airway and Respiratory Function: Patent airway with normal (patient baseline) respiratory exam Cardiovascular Function: Hemodynamically Stable Hydration Status: Adequately Hydrated Nausea & Vomiting: No Nausea or Vomiting Pain: Pain is tolerable per patient (2/10 pain) Peripheral Nerve Block: Patient did not receive a nerve block
--- NOTE | 2022-02-20 15:08 | PT.INIE ---
Date of service: 02/20/22 Time of Service: 15:08 PT Notes Visit Reasons: Right hip DJD Physical Therapy Day Surgery Initial Evaluation Date: 02/20/2022 Referring Doctor: MELIZA Escalante PT Orders: PT CONSULT: 'S/p Ortho surgery Precautions: WBAT on right LE with AD. Patient Profile/Admitting Diagnosis: Sulema is a 66-year-old female with degenerative joint disease of the right hip and is status post right anterior total hip arthroplasty on postoperative day 0. PMHX: Surgical History? Colonoscopy - IV Sedation (05/01/07) Colonoscopy w/ BX (08/09/17) [facility] [place] Dilation and curettage (05/27/02) Dr Madden Vein stripping L leg Social History/Home Situation: Lives with in a private home with 3 steps to enter. Independent with all aspects of ADLs prior to admission. Equipment Owned/DME: FWW Subjective: Reports mild nausea that subsided with activity. Objective: General Observation: Supine in bed. Mepilex Ag over surgical incision. TEDS to B legs. Mental Status: Alert and oriented x 4 Pain: 3/10 anterior thigh ROM: Right Lower Extremity: Hip flexion WFL. Hip abduction WFL. Knee flexion WFL. Ankle dorsiflexion WFL. Ankle plantarflexion WFL. Left Lower Extremity: Hip flexion WFL. Hip abduction WFL. Knee flexion WFL. Ankle dorsiflexion WFL. Ankle plantarflexion WFL. Strength: Right Lower Extremity: Hip flexors 4/5. Hip abductors 4/5. Knee flexors 5/5. Knee extensors 5/5. Ankle dorsiflexors 5/5. Ankle plantarflexors 5/5. Left Lower Extremity:Hip flexors 5/5. Hip abductors 5/5. Knee flexors 5/5. Knee extensors 5/5. Ankle dorsiflexors 5/5. Ankle plantarflexors 5/5. Sensation: Intact as to pain and light pressure in bilateral lower extremities. Bed Mobility/Transfers: Supine to sit stand by assist Sit to stand conatct guard assist Stand to sit stand by assist Bed to chair stand by assist Gait: 30 feet to bathroom where toliet assist was provided using FWW. 150 feet using FWW with step-through heel-toe gait pattern, stand by assist. Denies headache and chest pain but did report nausea initially. Stairs: Up and down 6 x 4-inch steps and 4 x 6-inch steps while holding onto B rails with step-to gait pattern, stand by assist. THERA EX: Seated hip flexion x 5 LAQ x 5 Quads sets x 5 Gluteal sets x 5Standing hip abduction x 5 Bilateral heel raises x 5 Balance: Static Sitting: Normal Dynamic Sitting: Normall Static Standing: Fair Dynamic Standing: Fair Special Tests: Mobility Limitations Standardized Measure [facility] 6 clicks Basic Mobility Inpatient Short Form: Raw Score: 23 CMS Score: 11% deficit Informed Consent/Education: Patient instructed in purpose of PT consult. Education and training on initial set of exercises that can be done at home have been completed with patient with reference to the [employer] lupe that she has previously reviewed. Assessment: Desiree requires the use of front wheeled walker for all mobility ADL performance to maximize independence and reduce fall risk. Patient presents with clinical signs and symptoms consistent with current/admitting diagnoses that have resulted to mobility limitations, gait instability, generalized weakness, and impairment of motor control as demonstrated by the following impairment level findings: 1. Decreased strength to left right hip major muscle groups 2. Impaired standing balance 3. Limitation of joint range of motion in right hip Impairments are contributing to the following functional limitations: 1. Inability to safely ambulate without assistive device 2. Increase completion time for mobility ADL performance 3. Increased fall risk Patient is assessed as a 56458 moderate complexity based on the following: History:66-year-old female with impairment level findings, functional limitations, and past medical history as indicated above Examination: Demonstrable impairment in strength, balance, and mobility level with underlying impairments and functional limitations as documented above Presentation: Evolving Decision Makin moderate complexity Goals: N/A. PT evaluation and 1-2 treatment sessions only for functional mobility training using recommended AD and for HEP instruction. Plan of Care/Treatment Plan: N/A. PT evaluation and 1-2 treatment session only for functional mobility training using recommended AD and for HEP instruction. DISCHARGE RECOMMENDATIONS: [] Home with no services [] [] Home with services [specify] [X] Home with outpatient PT. Home when medically cleared by her neurosurgeon. Will benefit from outpatient PT services in order to maximize functional mobility outcomes and facilitate independent community ambulation without assistive device. [] SNF for continued rehabilitation [] [] Nursing Home Care [] [] SNF versus LTC based on ability to participate and progress [] TREATMENT CODE/TIME: 58459 x 20 minutes, 27421 x 22 minutes beginning at 15:08 PM. Thank you for the opportunity to participate in the care of this patient. Umu Lea PT, DPT, CLT [facility] [place], [place]
--- NOTE | 2022-02-20 22:30 | ROE_ITS ---
Date of service: 02/20/22 Time of Service: 12:15 Operative Note Operative Note DATE OF PROCEDURE: 02/20/22 PRE-OP DIAGNOSIS: Right Hip Labral Tear, Chondromalacia POST-OP DIAGNOSIS: same PROCEDURE: Right Anterior Total Hip Arthroplasty with Intraoperative Navigation SURGEON: Leonard Lovett BANKER MASON: Marisol Figueroa ANESTHESIA TYPE: Spinal Refer to Anesthesia Record ESTIMATED BLOOD LOSS: 250 PATHOLOGY: none sent TOURNIQUET TIME: 0 COMPLICATIONS: None Patient was transported to: PACU Patient's condition: stable Implants: 1. Depuy [place] Acetabular Component, 54mm 2. Depuy Acetabular Liner, 37i22ze 3. Depuy Corail Standard Collared Femoral Stem, Size 12 4. Depuy Altrx Ceramic Femoral Head, Size 36+5mm Indications: I have seen Sulema in clinic for symptoms of hip arthritis, confirmed with radiographic findings. She has exhausted nonoperative methods and was having significant limitations in daily function and desired better function and less pain. I discussed the technical details of a hip replacement. I explained the risks of the procedure to include, but not limited to, bleeding, infection, pain, stiffness, fracture, damage to nerves and vessels, damage to muscles and tendons, loosening, instability, leg length inequality, need for repeat procedure, blood clot and cardiopulmonary demise. Despite these risks, Sulema elected to proceed. Findings: There was focal chondromalacia of hte superior femoral head adjacent to a complex labral tear with loose fragments. Procedure Description: Sulema was greeted in the preoperative holding area where the correct side was identified and marked. The consent was reviewed with the patient and signed. The history and physical was updated. All questions were answered. She was taken back to the operating room. A spinal anesthestic was then administered. The feet were wrapped with cast padding and Coban and then placed into the boot liners and then into the boots. Care was taken to protect the skin and make sure the heels were fully down and the boots were stable. The patient was then positioned onto the HANA table. Both legs were held in a neutral position. SCDs were applied. The patient was then slid down onto a peroneal post. Prophylactic antibiotics in the form of Cefazolin were administered. 1g of Tranxemic Acid was given intravenously within 30 minutes of incision. The right leg was then prepped with Chloraprep and draped in a standard fashion. A second prep with Chloraprep was performed prior to placement of a shower-curtain type drape with Iodine impregnated skin protection. A timeout to confirm correct identity, side and site, procedure, allergies, anesthesia, and medical concerns was performed. An obliquely oriented incision was made starting lateral to the ASIS and running distal over the Tensor Fascia Becki (TFL) muscle belly toward the fibular head, approximately 10cm. The skin and soft tissue was dissected sharply, through Dick?s fascia, and to the fascia of the TFL. With the fascia and superior border of the IT band identified, the fascia was incised with a new knife just above any perforators from the IT band. The TFL muscle belly was bluntly dissected away from the fascia and moved laterally. The fat between TFL and rectus was identified to ensure the dissection was not within the TFL. Blunt dissection created space between abductors and the capsule and retractor was placed over the lateral femoral neck. The fibers of the rectus femoris tendon were identified and these were freed from the anterior capsule. A second cobra retractor was placed around the medial femoral neck. The TFL was further retracted laterally to show the deep fascia. Careful dissection through this layer identified three main crossing vessels of the lateral femoral circumflex. These were cauterized in multiple locations and then cut without any noticeable bleeding. The TFL was further released bluntly from the deep fascia to expose anterior hip capsule and fat The Jared orthopaedic retractor was then placed beneath the TFL and against sartorius and medial soft tissues to protect and retract the soft tissues. A T-capsulotomy was then performed starting at the superior lateral acetabulum and moving distally to the intertrochanteric ridge. These capsular flaps were tagged with a No. 1 Ethibond and elevated from within. The capsular flaps were released to the shoulder of the lateral neck and to the lesser trochanter to give excellent visualization of the proximal femur. A neck osteotomy was performed using an oscillating saw based on preoperative templates. This cut started in the shoulder and of the lateral neck and exited medially. The saw was at all times directed medially to avoid injury to the greater trochanter. Gross traction was applied to the leg and the osteotomy opened. The femoral head was removed with a corkscrew, making sure to protect the TFL on its exit. Traction was released after head removal. This was measured on the back table to determine the starting reamer size. Portions of the rectus obscuring visualization were minimally elevated off the superior acetabulum. An anterior retractor was placed over the anterior wall between capsule and labrum and attached to the Gripper retraction system. The femur was rotated to 90 degrees and medial capsule was fully released until the lesser trochanter was palpable and visible; the femur was returned to 30 degrees. A posterior retractor was placed similarly between capsule and labrum. This provided excellent visualization. The contents of the cotyloid fossa were removed with electrocautery and the labrum was removed with a knife. There was some mild chondromalacia of the superior acetabulum. Acetabular reaming began with a 48mm reamer. This first reaming was directed anterior to posterior and medial to get down to the true floor. This was inspected and reamed until the true floor was reached. The anterior retractor was then released and entry and exit was provided by traction on the capsular flaps. I then reamed sequentially up to a 54mm reamer where good fit was obtained. The larger reamers were oriented based on anatomical reference of the anterior and lateral shaw to ensure proper abduction and anteversion. Positioning and size was confirmed with the fluoroscopy. A 54mm Depuy [place] acetabular component was selected. The acetabulum was reamed around the periphery with the selected acetabular size to prevent a rim fit. The deep tissues were irrigated. The acetabular component was then impacted in a position of about 40-45 degrees of abduction and 15-20 degrees of anteversion, using the patient?s anatomy as the ultimate landmark. Fluoroscopy was used to confirm this. There was excellent health psychologist of the acetabular component and the inserting handle was removed. The acetabular liner, Depuy [id number] polyethylene liner, was inserted and lined up with the tines of the acetabular component. There was no soft tissue interposition. The liner was then impacted into position and confirmed to be well-seated. A portion of the enedina-articular cocktail was then injected around the acetabulum into the capsule and periosteum. This cocktail consisted of 123mg of Ropivacaine, 0.25mg of Epinephrine, 0.04mg of Clonidine, and 15mg of Ketorolac, diluted to 50cc. The leg was rotated to 120 degrees. Any remaining medial capsule was released until the lesser trochanter was easily palpable. A retractor was placed medially. The lateral capsule was further released into the shoulder to allow access to the greater trochanter. A Watts retractor was placed over the greater trochanter which allowed the trochanter to flip in front of the capsule for excellent exposure. The leg was brought down into maximal extension and 20 degrees of adduction while ensuring there was no impingement on the acetabulum. Any remnant capsule within the trochanter was released. Piriformis and obturator externis were identified and protected. There was excellent access to the proximal femur. The lateral neck remnant was removed with a rongeur. A blunt canal probe was used to identify the canal and trajectory for later broaching. A box osteotome initiated the broach course. A small curved rasp and a curved curette were used to work laterally. Broaching then began with a size 8 [place] broach. This was inserted manually around the trochanter and into the canal before mallet blows. The broach was seated to a few millimeters below the cut level based on the neck cut and the preoperative template. Sequential broaching was continued with the SI-BONEse pneumatic broaching device until a tight fit was obtained with good rotational control of the femur. A trial standard neck was inserted along with a +5 trial head. The leg was brought out of extension and adduction and then reduced with traction and internal rotation. The leg was stable anteriorly in a position of 30 degrees of extension and 90 degrees of external rotation. Fluoroscopy was used to ensure there was no fracture and the stem was seated well. Leg lengths were checked with an AP pelvis and pelvic reference points. Dr. Jerry's Smooth Move navigation system was used to confirm appropriate positioning and leg length and offset. Once content with the desired offset and leg lengths, the leg was brought back into extension, external rotation and adduction. The periosteum and surrounding tissue was injected with remaining portion of the enedina-articular cocktail. The proximal femur was irrigated as well as the deep tissues. The Depuy [place] standard collared stem, size 12, was then manually inserted into the proximal femur making sure to control rotation. It was then malleted into position with light blows, giving breaks to allow bone expansion and decrease risk of fracture. The selected Depuy Altrx Ceramic Head, size 36+5mm, was then placed onto the clean and dry trunnion and secured with impaction onto the tapered fit. The leg was brought back out of extension and adduction and reduced with traction and internal rotation. Stability was confirmed with no shuck at 90 degrees of external rotation and 30 degrees of extension. No impingement through range of motion arc. Final x-ray images were obtained with fluoroscopy to confirm adequate positioning and no intraoperative fracture. The deep tissues were thoroughly irrigated with Surgiphor, betadine solution. This was allowed to sit in the wound for 3 minutes before being thoroughly irrigated out with normal saline. The capsule was then reapproximated with the previously placed Ethibond sutures. The TFL fascia was finally closed with a No. 2 Stratafix, barbed suture. Deep tissues were then reapproximated with 0 Vicryl and a running 2-0 Vicryl. The skin was closed with a running 4-0 Monocryl in a subcuticular fashion. This was reinforced with skin glue. A Mepilex silver dressing was applied. At the end of the case, all counts were correct. Sulema was transferred to the hospital bed without difficulty and suffering no complications. Sulema has a good prognosis. Physical therapy will start today and without restrictions, weight-bearing as tolerated. Aspirin 81mg BID will be used for DVT prophylaxis.
== END 2022-02-20 16:09 | disposition home or self-care (01) ==
PROVIDERS: PCP Family Medicine; Visit Provider Student in an Organized Health Care Education/Training Program
PROC: (CPT 27130; principal; 2022-02-20 10:45)
DX: M16.11 Unilateral primary osteoarthritis, right hip (principal); I10 Essential (primary) hypertension; E78.5 Hyperlipidemia, unspecified
CPT/HCPCS: 20985; 27130; C1776; 97162; 97530; 73501; J0690; J1170; J2405; J2704; J3010

== ENCOUNTER 2022-03-05 12:05 | Outpatient (CLI) | payer MEDICARE, SELFPAY ==
--- NOTE | 2022-03-05 11:00 | DI.RAD_ITS ---
Exam(s) XR HIP RT COMPLETE AP PELVIS EXAM: XR HIP RT COMPLETE AP PELVIS INDICATION: right DEA. COMPARISON: CR XR HIP RT COMPLETE AP PELVIS from 02/08/2022 XA XR HIP RT IN OR from 02/20/2022 TECHNIQUE: 2D digital imaging was performed. Three views. FINDINGS: A right hip prosthesis is again noted, unchanged in alignment. There are no surrounding abnormal bon y lucencies. The left hip shows mild acetabular spurring. Incidental calcified fibroid is noted. DATA REPOSITORY: RADIATION DOSE DELIVERED:
== END 2022-03-05 12:06 | disposition home or self-care (01) ==
LOC: DIORS 12:05
PROVIDERS: PCP Family Medicine; Referring Provider Family Medicine; Visit Provider Physician Assistant
DX: Z96.641 Presence of right artificial hip joint (principal); Z47.1 Aftercare following joint replacement surgery
CPT/HCPCS: 73502

== ENCOUNTER → 2022-04-02 12:51 | Outpatient (BNVA) | payer MEDICARE, SELFPAY | PROVIDERS: PCP Family Medicine; Referring Provider Family Medicine; Visit Provider Student in an Organized Health Care Education/Training Program | DX: Z47.1 Aftercare following joint replacement surgery (principal); Z96.641 Presence of right artificial hip joint ==

== ENCOUNTER → 2022-05-14 08:16 | Outpatient (BNVA) | payer MEDICARE, SELFPAY | PROVIDERS: PCP Family Medicine; Referring Provider Family Medicine; Visit Provider Student in an Organized Health Care Education/Training Program | DX: Z47.1 Aftercare following joint replacement surgery (principal); Z96.641 Presence of right artificial hip joint; M76.31 Iliotibial band syndrome, right leg ==

== ENCOUNTER 2023-02-28 09:12 | Outpatient (CLI) | payer MEDICARE, SELFPAY ==
--- NOTE | 2023-02-28 08:24 | DI.RAD_ITS ---
Exam(s) XR HIP RT AP LAT ONLY EXAM: XR HIP RT AP LAT ONLY CLINICAL HISTORY: ANNUAL F/U R DEA. TECHNIQUE: 2D digital imaging was performed. COMPARISON: CR XR HIP RT COMPLETE AP PELVIS from 03/05/2022 FINDINGS: Two views. Satisfactory position alignment of the components of the right hip prosthesis. No fracture or loosening evident. IMPRESSION: Stable satisfactory appearance. DATA REPOSITORY: RADIATION DOSE DELIVERED:
== END 2023-02-28 09:13 | disposition home or self-care (01) ==
LOC: DIORS 09:13
PROVIDERS: PCP Family Medicine; Visit Provider Student in an Organized Health Care Education/Training Program
DX: Z47.1 Aftercare following joint replacement surgery (principal); Z96.641 Presence of right artificial hip joint; M70.62 Trochanteric bursitis, left hip
CPT/HCPCS: 99213; 73502

== ENCOUNTER → 2023-04-29 08:06 | Outpatient (BNVA) | payer MEDICARE, SELFPAY | PROVIDERS: PCP Family Medicine; Visit Provider Student in an Organized Health Care Education/Training Program | DX: M70.62 Trochanteric bursitis, left hip (principal) | CPT/HCPCS: 99213 ==

== ENCOUNTER 2023-07-04 02:03 | Outpatient (CLI) | payer MEDICARE, SELFPAY ==
[2023-07-04 07:49] LABS: ALT 27 U/L (14-59); AST 20 U/L (15-37); Albumin 3.6 g/dL (3.4-5.0); Alkaline Phosphatase 108 U/L (46-116); Anion Gap 9.1 mmol/L (3-11); BUN 20 mg/dL (7-18); Bilirubin, Total 0.5 mg/dL (0.2-1.0); CO2 27.9 mmol/L (21.0-32.0); Calcium 9.4 mg/dL (8.5-10.1); Calculated LDL 162 mg/dL (<100); Chloride 107 mmol/L (98-107); Cholesterol 261 mg/dL (<200); Estimated GFR 61.36 (mL/min/1.73m2); Glucose 104 mg/dL (74-106); HDL Cholesterol 89 mg/dL (40-60); Potassium 4.2 mmol/L (3.5-5.1); Sodium 144 mmol/L (136-145); Total Protein 7.1 g/dL (6.4-8.2); Triglyceride 54 mg/dL (<150)
== END 2023-07-04 02:04 | disposition home or self-care (01) ==
LOC: LBO 02:03
PROVIDERS: Absent Provider Family Medicine; PCP Family Medicine; Visit Provider Family Medicine
DX: E78.5 Hyperlipidemia, unspecified (principal)
CPT/HCPCS: 36415; 80053; 80061

== ENCOUNTER → 2024-03-30 14:20 | Outpatient (BNVA) | payer MEDICARE, SELFPAY | PROVIDERS: PCP Family Medicine; Referring Provider Family Medicine; Visit Provider Podiatrist | DX: M72.2 Plantar fascial fibromatosis (principal); M79.671 Pain in right foot | CPT/HCPCS: 99214 ==

== ENCOUNTER → 2024-04-27 15:04 | Outpatient (BNVA) | payer MEDICARE, SELFPAY | PROVIDERS: PCP Family Medicine; Referring Provider Family Medicine; Visit Provider Podiatrist | DX: M72.2 Plantar fascial fibromatosis (principal); M79.671 Pain in right foot | CPT/HCPCS: 99214 ==

== ENCOUNTER → 2024-06-09 10:32 | Outpatient (BNVA) | payer MEDICARE, SELFPAY | PROVIDERS: PCP Family Medicine; Referring Provider Family Medicine; Visit Provider Podiatrist | DX: M79.671 Pain in right foot (principal); M72.2 Plantar fascial fibromatosis | CPT/HCPCS: 99213 ==

== ENCOUNTER → 2024-07-21 10:06 | Outpatient (BNVA) | payer MEDICARE, SELFPAY | PROVIDERS: PCP Family Medicine; Referring Provider Family Medicine; Visit Provider Podiatrist | DX: M72.2 Plantar fascial fibromatosis (principal); M79.671 Pain in right foot; M10.9 Gout, unspecified | CPT/HCPCS: 99214 ==